=== PATIENT | male | born 1960 | race Caucasian/White ===

== ENCOUNTER 2016-10-19 12:13 | Emergency (ER) | payer MEDICAID ==
[2016-10-19] MEDS ORDERED: TDAP ADULT 0.5 ML INJ (BOOSTRIX) IM ONE (12:22)
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
[2016-10-19 12:46] LABS: % IMMATURE GRANULYOCYTES 0.2 % (0.0-1.1); ABSOLUTE IMMATURE GRANULOCYTES 0.01 10^3/uL (0.00-0.10); ADD DIFF? NO; ADD MORPH? NO; ADD SCAN? NO; ATYPICAL LYMPHOCYTE FLAG 10 (0-99); FRAGMENT RBC FLAG 0 (0-99); HEMATOCRIT 37.1 % (40.0-51.0); HEMOGLOBIN 12.6 g/dL (13.7-17.5); LEFT SHIFT FLG 0 (0-99); LIPEMIA HEMOLYSIS FLAG 90 (0-99); MEAN CELL HEMOGLOBIN 32.6 pg (27.9-34.1); MEAN CELL VOLUME 95.9 fL (81.5-99.8); MEAN PLATELET VOLUME 8.8 fL (8.7-11.7); PLATELET CLUMPS FLAG 10 (0-99); PLATELET COUNT 205 10^3/uL (150-400); RED BLOOD CELL COUNT 3.87 10^6/uL (4.40-6.38); RED CELL DISTRIBUTION WIDTH 12.6 % (11.5-15.2)
[2016-10-19] MEDS ORDERED: IOPAMIDOL (ISOVUE-300) 100 ML BTL ONE (13:00)
[2016-10-19 13:03] LABS: ANION GAP 14 mEq/L (8-16); CALCIUM 9.3 mg/dL (8.5-10.4); CARBON DIOXIDE 25 mEq/l (22-31); CHLORIDE 98 mEq/L (97-110); CREATININE 0.7 mg/dL (0.7-1.3); GLOMERULAR FILTRATION RATE > 60; GLUCOSE 94 mg/dL (70-100); POTASSIUM 4.7 mEq/L (3.5-5.2); SODIUM 137 mEq/L (134-144)
[2016-10-19 14:32] VITALS: BP 106/69; PULSE 92; RESP 20; TEMP 98.2; O2SAT 97
== END 2016-10-19 14:32 | disposition home or self-care (01) ==
LOC: EDUNIT#
DX: S31.010A Laceration without foreign body of lower back and pelvis without penetration into retroperitoneum, initial encounter (principal); F17.200 Nicotine dependence, unspecified, uncomplicated; Z23 Encounter for immunization; X58.XXXA Exposure to other specified factors, initial encounter; Y93.89 Activity, other specified
CPT/HCPCS: 82947-QW; Q9967

== ENCOUNTER 2016-10-26 00:44 | Emergency (ER) | payer MEDICAID ==
--- NOTE | 2016-10-26 00:52 | EDPHY ---
H & P HPI/ROS: HPI CHIEF COMPLAINT: Alcohol Intoxication HISTORY OF PRESENT ILLNESS: This patient 56-year-old male homeless, alcohol, presents emergency room by EMS [facility] 15 however he is slurring his patient highly intoxicated alcohol. He reports he drank multiple beers this evening. He is homeless. Denies ingestion of anything else. Denies drugs. Did have a fall. He has an abrasion to the right occiput. Abrasion to right elbow. He tells me his tetanus shot is up-to-date. He is on an arc hold. Past Medical History: Homelessness, daily alcohol use Past Surgical History: Denies any surgical history Social History: Daily alcohol use, homeless Family History: Noncontributory ROS REVIEW OF SYSTEMS: A comprehensive 10 point review of systems is otherwise negative aside from elements mentioned in the history of present illness. Exam Constitutional Intoxicated, triage nursing summary reviewed, vital signs reviewed, Sleepy, smells of alcohol Eyes normal conjunctivae and sclera, horizontal beating nystagmus consistent acute alcohol intoxication, otherwise pupils equal and react to light HENT head/neck: Abrasion and hematoma right occiput, no midline neck pain,, moist mucus membranes, no epistaxis, neck supple/ no meningismus, no raccoon eyes. Respiratory clear to auscultation bilaterally, normal breath sounds, no respiratory distress, no wheezing. Cardiovascular rate normal, regular rhythm, no murmur, no edema, distal pulses normal. Gastrointestinal soft, non-tender, no rebound, no guarding, normal bowel sounds, no distension, no pulsatile mass. Genitourinary no CVA tenderness. Musculoskeletal no midline vertebral tenderness, full range of motion, no calf swelling, no tenderness of extremities, no meningismus, good pulses, neurovascularly intact. Skin abrasion right elbow, pink, warm, & dry, no rash, skin atraumatic. Neurologic sleepy, intoxicated with alcohol,, alert and oriented x 3, AAOx3, moves all 4 extremities equally, motor intact, sensory intact, CN II-XII intact , , normal vision, normal speech. Psychiatric normal mood/affect. Heme/Lymph/Immune no lymphadenopathy. Differential Diagnosis: Includes but is not limited to in a particular order acute alcohol intoxication, alcohol abuse, dehydration, electrolyte abnormality , nausea vomiting from acute alcohol intoxication Medical Decision Making: Plan for this patient breath alcohol, CT head without contrast for trauma given acute alcohol intoxication and fall. Re-evaluation: CT scan of the head w/o. The results of the study are Negative for anything acute. The study was read by Dr. Marino I viewed the images myself on the PACS system. 0119: Re-evaluation at this time patient is stable gait. CT head without contrast for trauma the setting of acute alcohol intoxication and abrasions of the head show no acute bleed. Patient is stable gait no ataxia. Patient need to be discharged to the arc Source: Patient, EMS - Medical/Surgical History Hx Asthma: No Hx Chronic Respiratory Disease: No Hx Diabetes: No Hx Cardiac Disease: No Hx Renal Disease: No Hx Cirrhosis: No Hx Alcoholism: Yes Hx HIV/AIDS: No Hx Splenectomy or Spleen Trauma: No Other PMH: unobtainable, ?PSYCH, ETOH - Social History Smoking Status: Current every day smoker Constitutional: Initial Vital Signs Temperature (C) 36.5 C 10/26/16 00:52 Heart Rate 84 10/26/16 00:52 Respiratory Rate 18 10/26/16 00:52 Blood Pressure 150/85 H 10/26/16 00:52 O2 Sat (%) 93 10/26/16 00:52 O2 Delivery Mode Room Air Allergies/Adverse Reactions: No Known Allergies Allergy (Unverified 11/14/15 20:11) Home Medications: Medication Instructions Recorded Metoprolol Tartrate [Lopressor 25 25 mg PO BID #60 tab 10/29/14 mg (*)] levOFLOXACIN 750 mg PO DAILY #5 tablet 10/29/14 Departure - Departure Disposition: Home, Routine, Self-Care Clinical Impression: Alcohol intoxication Qualifiers: Complication of substance-induced condition: uncomplicated Qualified Code(s): F10.120 - Alcohol abuse with intoxication, uncomplicated Condition: Good Instructions: Alcohol Intoxication (ED) Referrals: NONE *PRIMARY CARE P,. [Primary Care Provider] - As per Instructions
[2016-10-26 02:07] VITALS: BP 99/71; PULSE 72; RESP 16; TEMP 98.2; O2SAT 95
== END 2016-10-26 02:07 | disposition home or self-care (01) ==
LOC: EDUNIT#
DX: F10.120 Alcohol abuse with intoxication, uncomplicated (principal); F17.200 Nicotine dependence, unspecified, uncomplicated

== ENCOUNTER 2016-11-08 18:44 | Emergency (ER) | payer MEDICAID ==
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
[2016-11-08 18:56] VITALS: TEMP 99.9; O2SAT 94
[2016-11-08] MEDS ORDERED: CHLORDIAZEPOXIDE 25MG PREPK#6 BTL TAKEHOME ONE ×2 (22:20→22:24)
[2016-11-08 22:40] VITALS: BP 149/78; PULSE 82; RESP 16
== END 2016-11-08 22:40 | disposition home or self-care (01) ==
LOC: EDUNIT#
DX: F10.120 Alcohol abuse with intoxication, uncomplicated (principal); F17.200 Nicotine dependence, unspecified, uncomplicated

== ENCOUNTER 2017-03-22 04:05 | Emergency (ER) | payer MEDICAID ==
[~2017-03-22 04:05] MED LIST: PERMETHRIN 5% 60 GM CREAM TP SCH
--- NOTE | 2017-03-22 04:16 | EDPHY ---
H & P HPI/ROS: HPI The patient presents with body lice, requiring medical clearance for long-term. He is said that he has had them for the last several days and he is homeless. He denies any fevers, rash on his body.. REVIEW OF SYSTEMS Constitutional: No fever, no chills. Eyes: No discharge. ENT: No sore throat. Cardiovascular: No chest pain, no palpitations. Respiratory: No cough, no shortness of breath. Gastrointestinal: No abdominal pain, no vomiting. Genitourinary: No hematuria. Musculoskeletal: No back pain. Skin: No rashes. Neurological: No headache. PMHx: Possible psychiatric disease Soc Hx: Homeless, history of alcohol use PHYSICAL General Appearance: Alert, no distress Eyes: Pupils equal and round no pallor or injection ENT, Mouth: Mucous membranes moist Respiratory: There are no retractions, lungs are clear to auscultation Cardiovascular: Regular rate and rhythm Gastrointestinal: Abdomen is soft and non-tender, no masses, bowel sounds normal Neurological: A&O, moves all extremities Skin: Warm and dry, no rashes Musculoskeletal: Neck is supple non tender Extremities: symmetrical, full range of motion Psychiatric: Patient is oriented X 3, there is no agitation Source: Patient Exam Limitations: No limitations - Medical/Surgical History Hx Asthma: No Hx Chronic Respiratory Disease: No Hx Diabetes: No Hx Cardiac Disease: No Hx Renal Disease: No Hx Cirrhosis: No Hx Alcoholism: Yes Hx HIV/AIDS: No Hx Splenectomy or Spleen Trauma: No Other PMH: unobtainable, ?PSYCH, ETOH - Social History Smoking Status: Current every day smoker Constitutional: Initial Vital Signs Temperature (C) 36.6 C 03/22/17 04:05 Heart Rate 74 03/22/17 04:05 Respiratory Rate 165 H 03/22/17 04:05 Blood Pressure 141/66 H 03/22/17 04:05 O2 Sat (%) 91 L 03/22/17 04:05 O2 Delivery Mode Room Air Allergies/Adverse Reactions: No Known Allergies Allergy (Unverified 03/22/17 04:20) Home Medications: Medication Instructions Recorded Permethrin 5% [Elimite 5%] 60 gm TP ONCE #1 cream 03/22/17 Medical Decision Making Differential Diagnosis: This is a 56-year-old homeless male who presents for medical clearance for long-term with body lice witnessed by officers. When he arrived in the emergency department, he was taken directly to the decontamination showers were he was given a shower and bathe Wright until all body lice were gone. He is given a prescription for permethrin cream which she can use over the next several hours to fully treat any lice that may still be present. Departure - Departure Disposition: Law Enforcement/Court/Correction Clinical Impression: Medical clearance for incarceration, Body lice Condition: Good Instructions: Body Lice (ED) Referrals: [facility] [Outside] - As per Instructions Prescriptions: Permethrin 5% [Elimite 5%] 60 gm TP ONCE #1 cream
[2017-03-22 04:24] VITALS: BP 141/66; PULSE 74; RESP 165; TEMP 97.9; O2SAT 91
== END 2017-03-22 04:36 ==
DX: B85.1 Pediculosis due to Pediculus humanus corporis (principal); F17.200 Nicotine dependence, unspecified, uncomplicated

== ENCOUNTER 2017-04-19 12:43 | Emergency (ER) | payer MEDICAID ==
--- NOTE | 2017-04-19 13:05 | EDPHY ---
H & P Time Seen by Provider: 04/19/17 12:58 HPI/ROS: CHIEF COMPLAINT: Alcohol withdrawal HISTORY OF PRESENT ILLNESS: Chronic alcoholic who drinks beer who was sent from detox for alcohol withdrawal. He feels very shaky and is tachycardic. He does not have hallucinations or vomiting. Symptoms moderate. His last drink was at 6:00 p.m. last night. Shaking is not associated with vertigo or double vision. Not better worse with anything. Started earlier this morning. The patient denies any known withdrawal seizure or hospitalization for delirium tremens. REVIEW OF SYSTEMS: Eye: no change in vision ENT: no sore throat Cardiac: no chest pain or syncope Pulmonary: Not short of breath Abdomen: no vomiting, diarrhea, abdominal pain Musculoskeletal: No recent injury Skin: no rash Neuro: no headache Constitutional: no fever : no urinary symptoms A comprehensive 10 point review of systems is otherwise negative aside from elements mentioned in the history of present illness. PAST MEDICAL HISTORY: Alcoholism Social history: Last drink as above, nonsmoker General Appearance: Alert and conversant, cooperative. Eyes: No scleral icterus. ENT, Mouth: Normal mucous membranes. Respiratory: Normal respiratory effort, breath sounds equal, lungs are clear to auscultation. Cardiovascular: Regular rate and rhythm. Tachycardic. Gastrointestinal: Abdomen is soft and non tender. Neurological: Alert and oriented x3. Normally conversant. Face symmetric, normal movement and sensation in all extremities. Tremulous and tachycardic but not confused. Skin: Warm and dry, no rashes. Musculoskeletal: No peripheral edema and no joint swelling. Psychiatric: Not agitated. Not hallucinating. Emergency Department course/MDM: Ativan 2 mg IV and normal saline 1 L. Heart rate noted to be 124. He does not appear to be in delirium tremens. 1514: Sleeping quietly, easily awakened, no longer tremulous, stable for discharge back to detox. 1600: Ambulatory, not ataxic, stable for discharge. Smoking Status: Former smoker Constitutional: Initial Vital Signs Temperature (C) 37.0 C 04/19/17 12:46 Heart Rate 124 H 04/19/17 12:46 Respiratory Rate 16 04/19/17 12:46 Blood Pressure 145/97 H 04/19/17 12:46 O2 Sat (%) 96 04/19/17 12:46 O2 Delivery Mode Room Air Allergies/Adverse Reactions: No Known Allergies Allergy (Unverified 04/19/17 12:50) Home Medications: Medication Instructions Recorded Unobtainable 03/15/17 Permethrin 5% [Elimite 5%] 60 gm TP ONCE #1 cream 03/22/17 Medical Decision Making Differential Diagnosis: Differential for shaking considered including but not limited to hypoglycemia, alcohol withdrawal, seizure disorder, other metabolic. - Data Points Laboratory Results: Laboratory Results 04/19/17 13:10 04/19/17 13:10 04/19/17 04/19/17 13:10 13:10 WBC 3.79 10^3/uL L 10^3/uL (3.80-9.50) RBC 4.01 10^6/uL L 10^6/uL (4.40-6.38) Hgb 13.5 g/dL L g/dL (13.7-17.5) Hct 37.8 % L % (40.0-51.0) MCV 94.3 fL fL (81.5-99.8) MCH 33.7 pg pg (27.9-34.1) MCHC 35.7 g/dL g/dL (32.4-36.7) RDW 12.5 % % (11.5-15.2) Plt Count 93 10^3/uL L 10^3/uL (150-400) MPV 9.2 fL fL (8.7-11.7) Neut % (Auto) 73.9 % % (39.3-74.2) Lymph % (Auto) 15.3 % % (15.0-45.0) [place] % (Auto) 9.5 % % (4.5-13.0) Eos % (Auto) 0.3 % L % (0.6-7.6) Baso % (Auto) 0.5 % % (0.3-1.7) Nucleat RBC Rel Count 0.0 % % (0.0-0.2) Absolute Neuts (auto) 2.80 10^3/uL 10^3/uL (1.70-6.50) Absolute Lymphs (auto) 0.58 10^3/uL L 10^3/uL (1.00-3.00) Absolute Monos (auto) 0.36 10^3/uL 10^3/uL (0.30-0.80) Absolute Eos (auto) 0.01 10^3/uL L 10^3/uL (0.03-0.40) Absolute Basos (auto) 0.02 10^3/uL 10^3/uL (0.02-0.10) Absolute Nucleated RBC 0.00 10^3/uL 10^3/uL (0-0.01) Immature Gran % 0.5 % % (0.0-1.1) Immature Gran # 0.02 10^3/uL 10^3/uL (0.00-0.10) Sodium 137 mEq/L mEq/L (134-144) Potassium 4.0 mEq/L mEq/L (3.5-5.2) Chloride 100 mEq/L mEq/L (97-110) Carbon Dioxide 20 mEq/l L mEq/l (22-31) Anion Gap 17 mEq/L H mEq/L (8-16) BUN 10 mg/dL mg/dL (7-23) Creatinine 0.7 mg/dL mg/dL (0.7-1.3) Estimated GFR > 60 Glucose 111 mg/dL H mg/dL (70-100) Calcium 9.8 mg/dL mg/dL (8.5-10.4) Medications Given: Discontinued Medications Chlordiazepoxide (Librium 25 Mg Prepack#6) 1 btl TAKEHOME EDNOW ONE Stop: 04/19/17 15:16 Last Admin: 04/19/17 15:33 Dose: 1 btl Chlordiazepoxide HCl (Librium) 50 mg PO EDNOW ONE Stop: 04/19/17 15:25 Last Admin: 04/19/17 15:32 Dose: 50 mg Sodium Chloride (Ns) 1,000 mls @ 0 mls/hr IV EDNOW ONE; Wide Open PRN Reason: Protocol Stop: 04/19/17 13:02 Last Admin: 04/19/17 13:15 Dose: 1,000 mls Lorazepam (Ativan Injection) 2 mg IVP EDNOW ONE Stop: 04/19/17 13:02 Last Admin: 04/19/17 13:15 Dose: 2 mg Lorazepam (Ativan Injection) 1 mg IVP EDNOW ONE Stop: 04/19/17 13:58 Last Admin: 04/19/17 14:27 Dose: 1 mg Lorazepam (Ativan Injection) 1 mg IVP EDNOW ONE Stop: 04/19/17 15:30 Last Admin: 04/19/17 15:32 Dose: 1 mg Departure - Departure Disposition: Home, Routine, Self-Care Clinical Impression: Alcohol withdrawal Qualifiers: Complication of substance-induced condition: uncomplicated Qualified Code(s): F10.230 - Alcohol dependence with withdrawal, uncomplicated Condition: Good Instructions: Alcohol Withdrawal (ED) Referrals: [facility],. [Clinic] - As per Instructions
[2017-04-19] MEDS: NS 1,000 ML IV ONE (13:15)
[2017-04-19] MEDS: LORazepam 2 MG/ML INJ IVP ONE ×3 (13:15→15:32)
[2017-04-19 13:16] LABS: % IMMATURE GRANULYOCYTES 0.5 % (0.0-1.1); ABSOLUTE IMMATURE GRANULOCYTES 0.02 10^3/uL (0.00-0.10); ADD DIFF? NO; ADD MORPH? NO; ADD SCAN? NO; ATYPICAL LYMPHOCYTE FLAG 0 (0-99); FRAGMENT RBC FLAG 0 (0-99); HEMATOCRIT 37.8 % (40.0-51.0); HEMOGLOBIN 13.5 g/dL (13.7-17.5); LEFT SHIFT FLG 0 (0-99); LIPEMIA HEMOLYSIS FLAG 90 (0-99); MEAN CELL HEMOGLOBIN 33.7 pg (27.9-34.1); MEAN CELL HEMOGLOBIN CONCENTR. 35.7 g/dL (32.4-36.7); MEAN CELL VOLUME 94.3 fL (81.5-99.8); MEAN PLATELET VOLUME 9.2 fL (8.7-11.7); PLATELET CLUMPS FLAG 20 (0-99); PLATELET COUNT 93 10^3/uL (150-400); RED BLOOD CELL COUNT 4.01 10^6/uL (4.40-6.38); RED CELL DISTRIBUTION WIDTH 12.5 % (11.5-15.2)
[2017-04-19 13:30] LABS: ANION GAP 17 mEq/L (8-16); CALCIUM 9.8 mg/dL (8.5-10.4); CARBON DIOXIDE 20 mEq/l (22-31); CHLORIDE 100 mEq/L (97-110); CREATININE 0.7 mg/dL (0.7-1.3); GLOMERULAR FILTRATION RATE > 60; GLUCOSE 111 mg/dL (70-100); SODIUM 137 mEq/L (134-144)
[2017-04-19] MEDS ORDERED: LORazepam 2 MG/ML INJ ONE (15:27)
[2017-04-19] MEDS: chlordiazePOXIDE 25 MG CAP PO ONE (15:32)
[2017-04-19] MEDS: CHLORDIAZEPOXIDE 25MG PREPK#6 BTL TAKEHOME ONE (15:33)
[2017-04-19 15:41] VITALS: BP 149/103; PULSE 107; RESP 18; TEMP 99.1; O2SAT 94
== END 2017-04-19 16:16 | disposition home or self-care (01) ==
LOC: EDUNIT# 12:43
DX: F10.230 Alcohol dependence with withdrawal, uncomplicated (principal); E86.9 Volume depletion, unspecified; Z87.891 Personal history of nicotine dependence
CPT/HCPCS: 96374; J2060

== ENCOUNTER 2017-04-25 20:17 | Emergency (ER) | payer MEDICAID ==
--- NOTE | 2017-04-25 20:26 | EDPHY ---
H & P Smoking Status: Former smoker HPI/ROS: CHIEF COMPLAINT: Alcohol intoxication HISTORY OF PRESENT ILLNESS: Patient is a 56-year-old male who presents to the emergency department via EMS after being found intoxicated. Patient is without complaints. He states he drank alcohol this evening. He drinks regularly. He has no headache or chest pain. No shortness of breath. No abdominal pain. REVIEW OF SYSTEMS: My complete review of systems is negative except as mentioned in the HPI. ( Cathie Parker) Past Medical/Surgical History: Includes alcohol abuse Social history: Patient drinks regularly. He does not smoke (Cathie Parker S ) Physical Exam: GENERAL: No acute distress, alert. Intoxicated appearing. Wet clothing. HEENT: Eyes normal to inspection, no signs of dehydration. No visible trauma. NECK: Normal appearing, supple. RESPIRATORY: Clear to auscultation bilaterally, no rales, rhonchi or wheezing. CVS: Regular rate and rhythm, no rubs, murmurs, or gallops. ABDOMEN: Soft, nontender, nondistended. BACK: Normal to inspection, no CVA tenderness. SKIN: Normal color, no rash, cool, dry. No pallor. EXTREMITIES: No pedal edema, no calf tenderness, no Homans sign or cords, no joint swelling. NEURO/PSYCH: Alert, intoxicated appearing, moves all extremities purposefully. Normal motor sensory exam. (Cathie Parker S) Constitutional: Initial Vital Signs Temperature (C) 36.5 C 04/25/17 20:24 Heart Rate 66 04/25/17 20:24 Respiratory Rate 18 04/25/17 20:24 Blood Pressure 137/98 H 04/25/17 20:24 O2 Sat (%) 94 04/25/17 20:24 O2 Delivery Mode Room Air Allergies/Adverse Reactions: No Known Allergies Allergy (Unverified 04/19/17 12:50) Home Medications: Medication Instructions Recorded Unobtainable 03/15/17 Permethrin 5% [Elimite 5%] 60 gm TP ONCE #1 cream 03/22/17 Medical Decision Making ED Course/Re-evaluation: In the emergency department I met EMS on arrival. Per report, police are coming with an R cold. As stated in HPI the patient has no complaints. His wet clothing was removed. Warm blankets were placed. Patient was recheck while here. He was stable with no new complaints. 2100: Patient is signed out to Dr. Farah at change of shift. (Cathie Parker) I assumed care of this patient at 9:[address] Parker. At 10:45 p.m. he was able to walk to the bathroom with minimal assistance. I anticipate that he will be ready for discharge and transport to the [facility] in the near future. (Gaby Farah) Differential Diagnosis: My differential includes but is not limited to alcohol intoxication, drug abuse , closed-head injury, electrolyte abnormality, sugar abnormality, dehydration, hypothermia (Cathie Parker) Departure - Departure Disposition: Home, Routine, Self-Care Clinical Impression: Alcohol abuse Alcoholic intoxication Qualifiers: Complication of substance-induced condition: uncomplicated Qualified Code(s): F10.920 - Alcohol use, unspecified with intoxication, uncomplicated Condition: Good Instructions: Alcohol Intoxication (ED) Additional Instructions: Return with any concerns. Referrals: [facility],. [Clinic] - As per Instructions
[2017-04-26 00:25] VITALS: TEMP 97.5
[2017-04-26] MEDS ORDERED: CHLORDIAZEPOXIDE 25MG PREPK#6 BTL TAKEHOME ONE (02:56)
[2017-04-26 03:04] VITALS: BP 138/68; PULSE 82; RESP 16; O2SAT 96
== END 2017-04-26 03:01 | disposition home or self-care (01) ==
LOC: EDUNIT#
DX: F10.129 Alcohol abuse with intoxication, unspecified (principal); Z87.891 Personal history of nicotine dependence

== ENCOUNTER 2017-05-03 09:52 | Emergency (ER) | payer MEDICAID ==
--- NOTE | 2017-05-03 09:58 | EDPHY ---
HPI/HX/ROS/PE/MDM Narrative: CHIEF COMPLAINT: Intoxication HPI: The patient is a 56 y/o male arriving via EMS for evaluation of alcohol intoxication. This is his 8th visit in the last year for alcohol-related incidents. Bystanders found him sleeping outside and contacted 911. He has no complaints and admits to recent alcohol use. Denies any recent trauma. REVIEW OF SYSTEMS: Aside from elements discussed in the HPI, a comprehensive 10-point review of systems was reviewed and is negative. PMH: Alcohol abuse SOCIAL HISTORY: Homeless, alcohol abuse. PHYSICAL EXAM: General:Patient is alert, in no acute distress. Neck: Full range of motion. Respiratory:No respiratory distress. Cardiovascular: Normal cap refill. Skin: Normal color. No rash. Warm and dry. Extremities: Normal appearance. Full range of motion. Neuro: Oriented x3. Normal motor function. Normal sensory function. ED Course: This is a 56 y/o male with a history of alcoholism who presents with alcohol intoxication and no complaints. He is able to ambulate without assistance and is alert and oriented. No obvious signs of trauma. Patient will be discharged in stable condition to the [facility] for detox. General Allergies/Adverse Reactions: No Known Allergies Allergy (Unverified 04/19/17 12:50) Home Medications: Medication Instructions Recorded Unobtainable 03/15/17 Permethrin 5% [Elimite 5%] 60 gm TP ONCE #1 cream 03/22/17 Departure - Departure Instructions: Alcohol Intoxication (ED) Additional Instructions: Medically clear for detox. Referrals: [facility] Detox 24 Hours [Outside] - As per Instructions Report Scribed for: Vinod Gaytan Report Scribed by: Katelyn Wayne Date of Report: 05/03/17 Time of Report: 09:57 Physician Review and Approval Statement: Portions of this note were transcribed by an ED scribe. I personally performed the history, physical exam, and medical decision making; and confirm the accuracy of the information in the transcribed note.
[2017-05-03 10:02] VITALS: BP 144/100; PULSE 92; RESP 16; TEMP 98.1; O2SAT 91
--- NOTE | 2017-05-03 10:04 | EDPHY ---
H & P Time Seen by Provider: 05/03/17 09:57 HPI/ROS: CHIEF COMPLAINT: Alcohol intoxication HISTORY OF PRESENT ILLNESS: 56-year-old male presents to the emergency department with acute alcohol intoxication. The patient admits to drinking "a lot of alcohol" today. He was found outside of [employer]. He denies any trauma or fall. He denies chest pain or difficulty breathing. He denies any other substance abuse. He has no complaints currently. REVIEW OF SYSTEMS: Constitutional: No fever, no chills. Eyes: No double or blurry vision. ENT: No sore throat. Respiratory: No cough, no shortness of breath. Cardiac: No chest pain. Gastrointestinal: No abdominal pain, vomiting or diarrhea. Genitourinary: No dysuria. Musculoskeletal: No neck or back pain. Skin: No rashes. Neurological: No headache. Past Medical/Surgical History: Alcoholism Social History: Homeless Smoking Status: Former smoker Physical Exam: General Appearance: Alert, no distress. Smells strongly of alcohol. No visible signs of trauma to his head. Eyes: Pupils equal and round. Extraocular motions are all intact. ENT: Mouth: Mucous membranes moist. Respiratory: No wheezing, rhonchi, or rales, lungs are clear to auscultation. Cardiovascular: Regular rate and rhythm. Gastrointestinal: Abdomen is soft and nontender, no masses, no rebound or guarding, bowel sounds normal. Neurological: Alert and oriented x 3, cranial nerves II through XII grossly intact Skin: Warm and dry, no rashes. Musculoskeletal: Nontender to palpate along the cervical, thoracic or lumbar spine. Neck is supple. Extremities: Full range of motion and no peripheral edema. Psychiatric: Patient is oriented X 3, there is no agitation. Constitutional: Initial Vital Signs Temperature (C) 36.7 C 05/03/17 10:00 Heart Rate 92 05/03/17 10:00 Respiratory Rate 16 05/03/17 10:00 Blood Pressure 144/100 H 05/03/17 10:00 O2 Sat (%) 91 L 05/03/17 10:00 O2 Delivery Mode Room Air Allergies/Adverse Reactions: No Known Allergies Allergy (Unverified 04/19/17 12:50) Home Medications: Medication Instructions Recorded Unobtainable 03/15/17 Permethrin 5% [Elimite 5%] 60 gm TP ONCE #1 cream 03/22/17 Medical Decision Making ED Course/Re-evaluation: 56-year-old male presents to the emergency department with acute alcohol intoxication. The patient is on an [facility] hold. He has been medically cleared and will be [facility]. The patient is welcome at the [facility]. They asked that we send a prepack of Librium with the patient. He has been there multiple times in the past. He has had alcohol withdrawal seizures in the past. Differential Diagnosis: Altered mental status including but not limited to hypoglycemia, infectious process, electrolyte abnormality, head injury and intoxicants. Departure - Departure Disposition: Home, Routine, Self-Care Condition: Good Instructions: Alcohol Intoxication (ED) Additional Instructions: Medically clear for detox. Referrals: [facility] Detox 24 Hours [Outside] - As per Instructions
[2017-05-03] MEDS ORDERED: CHLORDIAZEPOXIDE 25MG PREPK#6 BTL TAKEHOME ONE (10:06)
== END 2017-05-03 10:14 | disposition home or self-care (01) ==
LOC: EDUNIT#
DX: F10.129 Alcohol abuse with intoxication, unspecified (principal); Z87.891 Personal history of nicotine dependence

== ENCOUNTER 2017-05-20 17:43 | Emergency (ER) | payer MEDICAID ==
[2017-05-20 18:04] VITALS: RESP 16; O2SAT 92
--- NOTE | 2017-05-20 18:30 | EDPHY ---
H & P Stated Complaint: ETOH, unable to walk Time Seen by Provider: 05/20/17 18:29 HPI/ROS: HPI: This is a 56-year-old male presents with Chief Complaint: Alcohol intoxication, unable to walk Location: body Quality: Alcohol intoxication Duration: Today Signs and Symptoms: No delusions, no psychosis, no suicidal ideation, no homicidal ideation, no paranoia Timing: Acute on chronic Severity: Moderate to severe Context: Patient has a history of alcoholism as well as alcohol withdrawal seizures presents to the emergency room via [facility] as he was found out the general public intoxicated with alcohol. Patient admits that he drink "a lot" today. He is unable to walk unassisted. He reports that he is open to go to the [facility] at discharge as he has been there several times before. He denies any chest pain, shortness of breath, nausea, vomiting, fever, chills, abdominal pain, blood in stool, hematemesis. Modifying Factors: None Comment: ROS: see HPI Constitutional: No fever, no chills, no weight loss Eyes: No blurred vision Respiratory: No shortness of breath, no cough Cardiovascular: No chest pain Gastrointestinal: No nausea, no vomiting, no diarrhea Genitourinary: No dysuria Extremities: No myalgias Neurologic: No weakness, no numbness Skin: No rashes Hematologic: No bruising, no bleeding MEDICAL/SURGICAL/SOCIAL HISTORY: Medical history: Alcohol abuse Surgical history: Denies Social history: Homeless. CONSTITUTIONAL: Smells heavily of alcohol, slurring words, untidy elderly white male, awake and alert, no obvious distress HEENT: Atraumatic and normocephalic, PERRL, EOMI. Tympanic membranes clear. Oropharynx clear, no exudate and moist pink mucosa. Airway patent. No lymphadenopathy. No meningismus. Cardiovascular: Normal S1/S2, regular rate, regular rhythm, without murmur rub or gallop. PULMONARY/CHEST: Symmetrical and nontender. Clear to auscultation bilaterally. Good air movement. No accessory muscle usage. ABDOMEN: Soft, nondistended, nontender, no rebound, no guarding, no peritoneal signs, no masses or organomegaly. No CVAT. EXTREMITIES: 2/2 pulses, strength 5/5, no deformities, no clubbing, no cyanosis or edema. NEUROLOGICAL: no focal neuro deficits. GCS 15. SKIN: Warm and dry, no erythema. no rash. Good capillary refill. Source: Patient, Police, RN/MD Exam Limitations: Intoxication - Personal History Current Tetanus/Diphtheria Vaccine: Unsure Current Tetanus Diphtheria and Acellular Pertussis (TDAP): Unsure - Medical/Surgical History Hx Asthma: No Hx Chronic Respiratory Disease: No Hx Diabetes: No Hx Cardiac Disease: No Hx Renal Disease: No Hx Cirrhosis: No Hx Alcoholism: Yes Hx HIV/AIDS: No Hx Splenectomy or Spleen Trauma: No Other PMH: ETOH ABUSE - Social History Smoking Status: Former smoker Constitutional: Initial Vital Signs Temperature (C) 36.5 C 05/20/17 17:43 Heart Rate 69 05/20/17 17:43 Respiratory Rate 16 05/20/17 17:43 Blood Pressure 122/80 H 05/20/17 17:43 O2 Sat (%) 92 05/20/17 17:43 O2 Delivery Mode Room Air Allergies/Adverse Reactions: No Known Allergies Allergy (Unverified 04/19/17 12:50) Home Medications: Medication Instructions Recorded Unobtainable 03/15/17 Permethrin 5% [Elimite 5%] 60 gm TP ONCE #1 cream 03/22/17 Medical Decision Making ED Course/Re-evaluation: Patient is calm and cooperative upon arrival. He immediately went to sleep on the hallway stretcher. Will continue to monitor. Breathalyzer upon arrival is 0.340 After 5 hr in the emergency room; patient is alert and oriented x4. He is walking back and forth to the bathroom without assistance. He agrees to be discharged to the [facility] with Librium prepack for further monitoring assistance. Patient reports that he has been to the [facility] several times. No signs of delirium/psychosis/withdrawal seizures. Differential Diagnosis: Differential diagnosis includes but is not limited to alcohol intoxication, alcohol delirium. Departure - Departure Disposition: Other Psych, Not [place] Clinical Impression: Alcohol intoxication Qualifiers: Complication of substance-induced condition: uncomplicated Qualified Code(s): F10.920 - Alcohol use, unspecified with intoxication, uncomplicated Condition: Good Instructions: Abuse of Alcohol (ED) Additional Instructions: Please abstain from drinking alcohol excessively. Follow-up with the [facility] and take Librium as directed. Referrals: [facility] Detox 24 Hours [Outside] - As per Instructions
[2017-05-20] MEDS ORDERED: CHLORDIAZEPOXIDE 25MG PREPK#6 BTL TAKEHOME ONE (19:47)
[2017-05-20 22:33] VITALS: BP 146/77; PULSE 74; TEMP 97.9
== END 2017-05-20 19:30 ==
LOC: EDUNIT#
DX: F10.920 Alcohol use, unspecified with intoxication, uncomplicated (principal); Z87.891 Personal history of nicotine dependence

== ENCOUNTER 2017-11-14 04:47 | Emergency (ER) | payer MEDICAID ==
--- NOTE | 2017-11-14 05:17 | EDPHY ---
H & P Stated Complaint: ETOH Time Seen by Provider: 11/14/17 05:15 HPI/ROS: CHIEF COMPLAINT: Alcohol intoxication HISTORY OF PRESENT ILLNESS: The patient is brought in by ambulance for alcohol intoxication. Apparently, he is homeless and was approached by a woman who took him into though her house and together they drink alcohol from about 11:00 p.m. Until 4:00 a.m.. The patient was already intoxicated prior to his arrival at her house. The woman became concerned for his well being when he was unable to walk and called 911. The patient is unable to provide any meaningful history at this time. REVIEW OF SYSTEMS: Constitutional: No fever, no chills. Eyes:No visual changes. ENT: No sore throat. Respiratory: No cough, no shortness of breath. Cardiac: No chest pain. Gastrointestinal: No abdominal pain, vomiting or diarrhea. Genitourinary: No hematuria. Musculoskeletal: No back pain. Skin: No rashes. Neurological: No headache. PAST MEDICAL HISTORY: None PAST SURGICAL HISTORY: None SOCIAL HISTORY: Homeless, history of alcohol abuse PHYSICAL EXAM: General Appearance: Alert, well hydrated, appropriate, and non-toxic appearing. Head: Atraumatic without scalp tenderness or obvious injury Eyes: Pupils equal, round, reactive to light, no injection. Ears: Clear bilaterally, no perforation, normal landmarks Nose: Atraumatic, no rhinorrhea, clear. Throat: mucus membranes moist. Neck: Supple, non-tender, no lymphadenopathy. Respiratory: No retractions, no distress, no wheezes, and no accessory muscle use. Lungs are clear to auscultation bilaterally. Cardiovascular: Regular rate and rhythm, no murmurs, rubs, or gallops. Gastrointestinal: Abdomen is soft, non-tender, non-distended Musculoskeletal: Normal active ROM of all extremities, atraumatic. Neurological: Alert, appropriate, and interactive. Moves all extremities equally. Skin: No rashes, good turgor, no nodules on palpation. MEDICAL DECISION MAKING: I serially examined this patient since the patient's arrival here in the emergency department. The patient continues to become more and more sober with each examination. I serially questioned the patient and the patient's story given initially has not changed. The patient still denies any trauma, any head injury, and any illicit drug use. At this point, the patient is walking the department freely and is clinically sober. We're discharging the patient to the [facility] in stable condition. Source: Police, EMS Exam Limitations: Intoxication - Personal History Current Tetanus/Diphtheria Vaccine: Unsure Current Tetanus Diphtheria and Acellular Pertussis (TDAP): Unsure - Medical/Surgical History Hx Asthma: No Hx Chronic Respiratory Disease: No Hx Diabetes: No Hx Cardiac Disease: No Hx Renal Disease: No Hx Cirrhosis: No Hx Alcoholism: No Hx HIV/AIDS: No Hx Splenectomy or Spleen Trauma: No Other PMH: unable to obtain - Social History Smoking Status: Unknown if ever smoked Constitutional: Initial Vital Signs Temperature (C) 36.6 C 11/14/17 04:48 Heart Rate 95 11/14/17 04:48 Respiratory Rate 16 11/14/17 04:48 Blood Pressure 146/95 H 11/14/17 04:48 O2 Sat (%) 95 11/14/17 04:48 O2 Delivery Mode Room Air O2 (L/minute) 2 Departure - Departure Disposition: Home, Routine, Self-Care Clinical Impression: Alcoholic intoxication, Altered mental status Condition: Good Instructions: Alcohol Intoxication (ED) Referrals: [facility] 24 Hours [Outside] - As per Instructions
[2017-11-14 10:41] VITALS: BP 110/80
[2017-11-15] MEDS ORDERED: CHLORDIAZEPOXIDE 25MG PREPK#6 BTL TAKEHOME ONE (00:38)
== END 2017-11-14 10:41 | disposition home or self-care (01) ==
LOC: MERGE 04:47 → EDBD 04:47
DX: F10.129 Alcohol abuse with intoxication, unspecified (principal); R41.82 Altered mental status, unspecified

== ENCOUNTER 2017-11-23 17:23 | Emergency (ER) | payer MEDICAID ==
--- NOTE | 2017-11-23 19:07 | EDPHY ---
H & P Time Seen by Provider: 11/23/17 17:41 HPI/ROS: CHIEF COMPLAINT: Alcohol intoxication HISTORY OF PRESENT ILLNESS: Patient brought in by EMS [place] being found [place] the park intoxicated and unable to ambulate. On my evaluation patient without complaints. Denies trauma, fever, nausea, vomiting. Denies any drugs. Admits to being an alcoholic. States he also has schizophrenia but is not on medications because he"likes listening to the voices". Contents of 10 point review of systems otherwise negative except for what is mentioned in HPI. General Appearance: Alert, no distress. Eyes: Pupils equal and round no icterus Respiratory: No respiratory distress Neurological: Awake, alert, no focal deficits. Skin: Warm and dry, no rashes. Musculoskeletal: Neck is supple nontender. Extremities are symmetrical, full range of motion, no edema. Psychiatric: Patient is oriented X 3, there is no agitation. Appears intoxicated. Medical/surgical history: Schizophrenia, alcoholism. Social history: Denies drugs. Smoking Status: Unknown if ever smoked Constitutional: Initial Vital Signs Temperature (C) 37 C 11/23/17 17:37 Heart Rate 86 11/23/17 17:37 Respiratory Rate 16 11/23/17 17:37 Blood Pressure 142/92 H 11/23/17 17:37 O2 Sat (%) 95 11/23/17 17:37 O2 Delivery Mode Room Air Allergies/Adverse Reactions: No Known Allergies Allergy (Unverified 11/23/17 17:37) Home Medications: Medication Instructions Recorded chlordiazePOXIDE 25MG PREPK#6 1 btl TAKEHOME Q6 PRN #6 btl 11/23/17 [Librium 25 mg Prepack#6] Medical Decision Making ED Course/Re-evaluation: Patient sobering appropriately and is now ambulatory. Plan is to send to [facility]. Differential Diagnosis: Differential diagnosis includes but is not limited to alcohol intoxication, alcoholism, acute psychosis, drug abuse. After evaluation patient intoxicated with history of alcoholism and is on [facility] hold by [facility]. No evidence of trauma, illness or other emergency medical condition. Will send to [facility] via police escort. Departure - Departure Clinical Impression: Alcoholic intoxication Qualifiers: Complication of substance-induced condition: uncomplicated Qualified Code(s): F10.920 - Alcohol use, unspecified with intoxication, uncomplicated Alcohol dependence Qualifiers: Substance use status: with intoxication Condition: Fair Instructions: Alcohol Intoxication (ED) Additional Instructions: Patient to go to [facility]. No emergency medical condition identified. Referrals: NONE *PRIMARY CARE P,. [Primary Care Provider] - As per Instructions Prescriptions: chlordiazePOXIDE 25MG PREPK#6 [Librium 25 mg Prepack#6] 1 btl TAKEHOME Q6 PRN # 6 btl PRN Reason: Ciwa Score 6 - 11
[2017-11-23] MEDS ORDERED: CHLORDIAZEPOXIDE 25MG PREPK#6 BTL TAKEHOME ONE (20:01)
[2017-11-23 20:17] VITALS: BP 142/80
== END 2017-11-23 20:15 ==
LOC: EDUNIT# → MERGE 17:23
DX: F10.229 Alcohol dependence with intoxication, unspecified (principal)

== ENCOUNTER 2017-12-12 04:09 | Emergency (ER) | payer MEDICAID, OTHER ==
[2017-12-12] MEDS ORDERED: chlordiazePOXIDE 25 MG CAP PO ONE ×2 (04:20→06:02)
[2017-12-12] MEDS ORDERED: LORazepam 1 MG TAB PO ONE (04:20)
[2017-12-12] MEDS ORDERED: CHLORDIAZEPOXIDE 25MG PREPK#6 BTL TAKEHOME ONE (04:20)
--- NOTE | 2017-12-12 04:25 | EDPHY ---
H & P Stated Complaint: Sent from the [facility] Time Seen by Provider: 12/12/17 04:16 HPI/ROS: HPI The patient presents with symptoms of alcohol withdrawal, [facility] where he self presented earlier today. He says his last drink was yesterday and he drinks about 10 beers daily. He does have a history of alcohol withdrawal. He is feeling shaky and anxious currently. His symptoms started gradually and have gotten progressively worse. REVIEW OF SYSTEMS Constitutional: No fever, no chills. Eyes: No discharge. ENT: No sore throat. Cardiovascular: No chest pain, no palpitations. Respiratory: No cough, no shortness of breath. Gastrointestinal: No abdominal pain, no vomiting. Genitourinary: No hematuria. Musculoskeletal: No back pain. Skin: No rashes. Neurological: No headache. PMHx: History of spinal fusion Soc Hx: Longstanding history of alcohol abuse PHYSICAL General Appearance: Alert, no distress Eyes: Pupils equal and round no pallor or injection ENT, Mouth: Mucous membranes moist Respiratory: There are no retractions, lungs are clear to auscultation Cardiovascular: Regular rate and rhythm Gastrointestinal: Abdomen is soft and non-tender, no masses, bowel sounds normal Neurological: A&O, moves all extremities, hand tremor is present Skin: Warm and dry, no rashes Musculoskeletal: Neck is supple non tender Extremities: symmetrical, full range of motion Psychiatric: Patient is oriented X 3, there is no agitation Source: Patient Exam Limitations: No limitations - Personal History Current Tetanus/Diphtheria Vaccine: No Current Tetanus Diphtheria and Acellular Pertussis (TDAP): No - Medical/Surgical History Hx Asthma: No Hx Chronic Respiratory Disease: No Hx Diabetes: No Hx Cardiac Disease: No Hx Renal Disease: No Hx Cirrhosis: No Hx Alcoholism: No Hx HIV/AIDS: No Hx Splenectomy or Spleen Trauma: No Other PMH: C 5-6 fusion - Social History Smoking Status: Former smoker Constitutional: Initial Vital Signs Temperature (C) 36.7 C 12/12/17 04:11 Heart Rate 85 12/12/17 04:11 Respiratory Rate 16 12/12/17 04:11 Blood Pressure 168/108 H 12/12/17 04:11 O2 Sat (%) 99 12/12/17 04:11 O2 Delivery Mode Room Air Allergies/Adverse Reactions: No Known Allergies Allergy (Unverified 04/19/17 12:50) Home Medications: Medication Instructions Recorded Unobtainable 03/15/17 Permethrin 5% [Elimite 5%] 60 gm TP ONCE #1 cream 03/22/17 chlordiazePOXIDE 25MG PREPK#6 1 btl TAKEHOME Q6 PRN #6 btl 11/23/17 [Librium 25 mg Prepack#6] Medical Decision Making Differential Diagnosis: This is a 57-year-old man with longstanding history of alcohol abuse who presents from the [facility] with symptoms of alcohol withdrawal. He stopped drinking yesterday, drinking 10 beers a day. Here, he is not tachycardic though does have a hand tremor. I will treat him with Ativan and Librium and reassess him. The patient was observed for about 2 hr. His symptoms improved after receiving medication. He will return back to the [facility] for further care of his alcohol withdrawal. - Data Points Medications Given: Discontinued Medications Chlordiazepoxide (Librium 25 Mg Prepack#6) 1 btl TAKEHOME EDNOW ONE Stop: 12/12/17 04:21 Last Admin: 12/12/17 04:24 Dose: 1 btl Chlordiazepoxide HCl (Librium) 25 mg PO EDNOW ONE Stop: 12/12/17 04:21 Last Admin: 12/12/17 04:23 Dose: 25 mg Chlordiazepoxide HCl (Librium) 25 mg PO EDNOW ONE Stop: 12/12/17 06:03 Last Admin: 12/12/17 06:03 Dose: 25 mg Lorazepam (Ativan) 1 mg PO EDNOW ONE Stop: 12/12/17 04:21 Last Admin: 12/12/17 04:23 Dose: 1 mg Departure - Departure Disposition: Home, Routine, Self-Care Clinical Impression: Alcohol withdrawal Qualifiers: Complication of substance-induced condition: uncomplicated Qualified Code(s): F10.230 - Alcohol dependence with withdrawal, uncomplicated Condition: Good Instructions: Chlordiazepoxide/Clidinium (By mouth), Alcohol Withdrawal (ED) Additional Instructions: Please return to the emergency department if your worse in any way. Referrals: [facility]ox 24 Hours [Outside] - As per Instructions
[2017-12-12] MEDS ORDERED: chlordiazePOXIDE 25 MG CAP ONE (06:02)
[2017-12-12 06:09] VITALS: BP 152/97
== END 2017-12-12 06:09 | disposition home or self-care (01) ==
DX: F10.230 Alcohol dependence with withdrawal, uncomplicated (principal); Z87.891 Personal history of nicotine dependence

== ENCOUNTER 2018-04-06 20:28 | Emergency (ER) | payer OTHER, MEDICAID ==
[2018-04-06] MEDS ORDERED: NS 1,000 ML IV ONE (20:30)
--- NOTE | 2018-04-06 20:31 | EDPHY ---
H & P Source: Patient, EMS - Medical/Surgical History Hx Asthma: No Hx Chronic Respiratory Disease: No Hx Diabetes: No Hx Cardiac Disease: No Hx Renal Disease: No Hx Cirrhosis: No Hx Alcoholism: No Hx HIV/AIDS: No Hx Splenectomy or Spleen Trauma: No Other PMH: C 5-6 fusion - Social History Smoking Status: Former smoker Time Seen by Provider: 04/06/18 21:21 HPI/ROS: HPI CHIEF COMPLAINT: Alcohol Intoxication HISTORY OF PRESENT ILLNESS: 57-year-old male presents emergency room by EMS after was found on the sidewalk sleeping in front of the homeless long-term highly intoxicated with alcohol. EMS made contact with him he was unable to ambulate appropriately. So brought here to the emergency room. Upon arrival to the emergency room highly intoxicated with alcohol. Past Medical History: Homeless. Alcoholism. Daily alcohol use. Past Surgical History: No recent surgery Social History: Daily alcohol use. Family History: Noncontributory ROS REVIEW OF SYSTEMS: 10 Systems were reviewed and negative with the exception of the elements mentioned in the history of present illness. Exam Constitutional Intoxicated, triage nursing summary reviewed, vital signs reviewed, Sleepy, smells of alcohol Eyes normal conjunctivae and sclera, horizontal beating nystagmus consistent acute alcohol intoxication, otherwise pupils equal and react to light HENT normal inspection, atraumatic, moist mucus membranes, no epistaxis, neck supple/ no meningismus, no raccoon eyes. Respiratory clear to auscultation bilaterally, normal breath sounds, no respiratory distress, no wheezing. Cardiovascular rate normal, regular rhythm, no murmur, no edema, distal pulses normal. Gastrointestinal soft, non-tender, no rebound, no guarding, normal bowel sounds, no distension, no pulsatile mass. Genitourinary no CVA tenderness. Musculoskeletal no midline vertebral tenderness, full range of motion, no calf swelling, no tenderness of extremities, no meningismus, good pulses, neurovascularly intact. Skin pink, warm, & dry, no rash, skin atraumatic. Neurologic sleepy, intoxicated with alcohol,, alert and oriented x 3, AAOx3, moves all 4 extremities equally, motor intact, sensory intact, CN II-XII intact , , normal vision, normal speech. Psychiatric normal mood/affect. Heme/Lymph/Immune no lymphadenopathy. Differential Diagnosis: Includes but is not limited to in a particular order acute alcohol intoxication, alcohol abuse, dehydration, electrolyte abnormality , nausea vomiting from acute alcohol intoxication Medical Decision Making: Plan for this patient check chemistry values, electrolytes, serum alcohol level. Monitor for worsening condition monitor for sobriety. Re-evaluation: Signed over to Dr. Gaytan at 9:00 p.m. Shift change. Serum alcohol level 540. Will need to metabolize his alcohol. Once more sober can be safely discharged to the [facility]. (Chente Sheikh) Constitutional: Initial Vital Signs Temperature (C) 35 C L 04/06/18 20:32 Heart Rate 93 04/06/18 20:32 Respiratory Rate 16 04/06/18 20:32 Blood Pressure 131/93 H 04/06/18 20:32 O2 Sat (%) 92 04/06/18 20:32 O2 Delivery Mode Room Air O2 (L/minute) 2 Allergies/Adverse Reactions: No Known Allergies Allergy (Verified 01/18/18 15:42) Home Medications: Medication Instructions Recorded NK [No Known Home Meds] 01/18/18 Medical Decision Making Other Provider: [id number]: Patient is up and walking throughout the department without issue. He is medically clear for detox. (Vinod Gaytan) - Data Points Laboratory Results: Laboratory Results 04/06/18 20:40 04/06/18 20:40 Sodium 139 mEq/L mEq/L (135-145) Potassium 4.5 mEq/L mEq/L (3.3-5.0) Chloride 100 mEq/L mEq/L (97-110) Carbon Dioxide 26 mEq/l mEq/l (22-31) Anion Gap 13 mEq/L mEq/L (6-14) BUN 8 mg/dL mg/dL (7-23) Creatinine 0.7 mg/dL mg/dL (0.7-1.3) Estimated GFR > 60 Glucose 92 mg/dL mg/dL (70-100) Calcium 9.0 mg/dL mg/dL (8.5-10.4) Ethyl Alcohol 540 mg/dL H* mg/dL (0-10) Medications Given: Discontinued Medications Chlordiazepoxide (Librium 25 Mg Prepack#6) 1 btl TAKEHOME EDNOW ONE Stop: 04/06/18 22:16 Last Admin: 04/06/18 22:18 Dose: 1 btl Sodium Chloride (Ns) 1,000 mls @ 0 mls/hr IV ONCE ONE PRN Reason: Wide Open Stop: 04/06/18 20:31 Last Admin: 04/06/18 20:47 Dose: 1,000 mls Departure - Departure Disposition: Home, Routine, Self-Care Clinical Impression: Alcohol intoxication Qualifiers: Complication of substance-induced condition: uncomplicated Qualified Code(s): F10.920 - Alcohol use, unspecified with intoxication, uncomplicated Condition: Good Instructions: Chlordiazepoxide/Clidinium (By mouth), Alcohol Intoxication (ED) , Abuse of Alcohol (ED) Additional Instructions: Go directly to the [facility] for detox. Referrals: [facility] Detox 24 Hours [Outside] - As per Instructions
[2018-04-06] MEDS ORDERED: CHLORDIAZEPOXIDE 25MG PREPK#6 BTL TAKEHOME ONE (22:15)
[2018-04-06 23:45] VITALS: BP 137/79
== END 2018-04-06 23:44 | disposition home or self-care (01) ==
LOC: EDUNIT#
DX: F10.920 Alcohol use, unspecified with intoxication, uncomplicated (principal); Z87.891 Personal history of nicotine dependence; Z59.0 Homelessness
CPT/HCPCS: G0480

== ENCOUNTER 2018-04-27 00:38 | Emergency (ER) | payer MEDICAID, OTHER ==
--- NOTE | 2018-04-27 00:41 | EDPHY ---
H & P Time Seen by Provider: 04/27/18 00:41 HPI/ROS: HPI CHIEF COMPLAINT: Alcohol intoxication. Found down on the sidewalk. Facial trauma. HISTORY OF PRESENT ILLNESS: 57-year-old male, alcohol, homeless, presents emergency room after was found on the sidewalk. Arrives to the emergency room highly intoxicated with alcohol. Patient's rectal temp upon arrival 32.5. Cold to palpation. Patient denies any complaints however is highly intoxicated with alcohol. He does have dry blood from both nares. He is unsure if he recently fell. Past Medical History: Alcoholism daily alcohol use. Past Surgical History: C5-C6 fusion. Social History: Alcohol use. Homeless. Family History: Noncontributory ROS REVIEW OF SYSTEMS: Limited due to acute alcohol intoxication Exam Constitutional intoxicated, smells of alcohol triage nursing summary reviewed, vital signs reviewed, awake/alert. Vital signs noted he is hypothermic 32.5 rectally. Eyes normal conjunctivae and sclera, EOMI, PERRLA. HENT bilateral Nare: Dry blood both nares. Otherwise midface stable, otherwise head and neck atraumatic, normal inspection, atraumatic, moist mucus membranes, no epistaxis, neck supple/ no meningismus, no raccoon eyes. Respiratory clear to auscultation bilaterally, normal breath sounds, no respiratory distress, no wheezing. Cardiovascular rate normal, regular rhythm, no murmur, no edema, distal pulses normal. Gastrointestinal soft, non-tender, no rebound, no guarding, normal bowel sounds, no distension, no pulsatile mass. Genitourinary no CVA tenderness. Musculoskeletal no midline vertebral tenderness, full range of motion, no calf swelling, no tenderness of extremities, no meningismus, good pulses, neurovascularly intact. Skin cool to touch, pink, warm, & dry, no rash, skin atraumatic. Neurologic awake, alert and oriented x 3, AAOx3, moves all 4 extremities equally, motor intact, sensory intact, CN II-XII intact, normal cerebellar, normal vision, normal speech. Psychiatric normal mood/affect. Heme/Lymph/Immune no lymphadenopathy. Differential Diagnosis: Includes but is not limited to in a particular order acute alcohol intoxication, hypothermia, dehydration, electrolyte disturbance, intracranial bleed, facial trauma Medical Decision Making: Plan for this patient IV establishment, warm IV fluids , check basic electrolytes, serum alcohol level, Nora Hugger, warm blankets, monitor temperature closely. Additionally CT scan head without contrast for trauma. Re-evaluation: Serum alcohol level 245 at 1:43 a.m.. Blood glucose noted to be normal. CT scan head without contrast negative for acute traumatic injury called to me by Dr. Pineda. [id number]: Patient re-evaluated this time. He is up ambulatory. Answers questions appropriately. His temperature has been aggressively warmed here in the emergency room. He came in hypothermic however with warm blankets, warm fluids and a Nora Hugger he is now normothermic. Patient denies any specific complaints. He did have a CT scan head without contrast due to a bloody nose and alcohol intoxication with shows no evidence of acute traumatic injury. Patient ambulatory to the bathroom. He is clinically sober. Safe for discharge. Patient be Friday take-home pack of Librium. Patient can be safely discharged to the [facility]. Source: Patient, EMS - Medical/Surgical History Hx Asthma: No Hx Chronic Respiratory Disease: No Hx Diabetes: No Hx Cardiac Disease: No Hx Renal Disease: No Hx Cirrhosis: No Hx Alcoholism: No Hx HIV/AIDS: No Hx Splenectomy or Spleen Trauma: No Other PMH: C 5-6 fusion - Social History Smoking Status: Former smoker Constitutional: Initial Vital Signs Temperature (C) 32.4 C L 04/27/18 00:40 Heart Rate 94 04/27/18 00:40 Respiratory Rate 16 04/27/18 00:40 Blood Pressure 140/79 H 04/27/18 00:40 O2 Sat (%) 96 04/27/18 00:40 O2 Delivery Mode Nasal Cannula O2 (L/minute) 2 Allergies/Adverse Reactions: No Known Allergies Allergy (Verified 04/27/18 00:40) Home Medications: Medication Instructions Recorded NK [No Known Home Meds] 01/18/18 Medical Decision Making - Data Points Laboratory Results: Laboratory Results 04/27/18 01:05 04/27/18 01:05 04/27/18 04/27/18 01:05 01:05 WBC 9.58 10^3/uL H 10^3/uL (3.80-9.50) RBC 4.42 10^6/uL 10^6/uL (4.40-6.38) Hgb 14.5 g/dL g/dL (13.7-17.5) Hct 42.2 % % (40.0-51.0) MCV 95.5 fL fL (81.5-99.8) MCH 32.8 pg pg (27.9-34.1) MCHC 34.4 g/dL g/dL (32.4-36.7) RDW 12.6 % % (11.5-15.2) Plt Count 235 10^3/uL 10^3/uL (150-400) MPV 8.8 fL fL (8.7-11.7) Neut % (Auto) 85.5 % H % (39.3-74.2) Lymph % (Auto) 7.0 % L % (15.0-45.0) [place] % (Auto) 5.8 % % (4.5-13.0) Eos % (Auto) 0.1 % L % (0.6-7.6) Baso % (Auto) 0.5 % % (0.3-1.7) Nucleat RBC Rel Count 0.0 % % (0.0-0.2) Absolute Neuts (auto) 8.18 10^3/uL H 10^3/uL (1.70-6.50) Absolute Lymphs (auto) 0.67 10^3/uL L 10^3/uL (1.00-3.00) Absolute Monos (auto) 0.56 10^3/uL 10^3/uL (0.30-0.80) Absolute Eos (auto) 0.01 10^3/uL L 10^3/uL (0.03-0.40) Absolute Basos (auto) 0.05 10^3/uL 10^3/uL (0.02-0.10) Absolute Nucleated RBC 0.00 10^3/uL 10^3/uL (0-0.01) Immature Gran % 1.1 % % (0.0-1.1) Immature Gran # 0.11 10^3/uL H 10^3/uL (0.00-0.10) Sodium 140 mEq/L mEq/L (135-145) Potassium 3.9 mEq/L mEq/L (3.3-5.0) Chloride 98 mEq/L mEq/L (97-110) Carbon Dioxide 19 mEq/l L mEq/l (22-31) Anion Gap 23 mEq/L H mEq/L (6-14) BUN 12 mg/dL mg/dL (7-23) Creatinine 0.6 mg/dL L mg/dL (0.7-1.3) Estimated GFR > 60 Glucose 98 mg/dL mg/dL (70-100) Calcium 9.4 mg/dL mg/dL (8.5-10.4) Ethyl Alcohol 245 mg/dL H mg/dL (0-10) Medications Given: Discontinued Medications Chlordiazepoxide (Librium 25 Mg Prepack#6) 1 btl TAKEHOME EDNOW ONE Stop: 04/27/18 05:21 Last Admin: 04/27/18 05:21 Dose: 1 btl Sodium Chloride (Ns) 1,000 mls @ 0 mls/hr IV EDNOW ONE; Wide Open PRN Reason: Protocol Stop: 04/27/18 00:44 Last Admin: 04/27/18 01:30 Dose: 1,000 mls Departure - Departure Disposition: Home, Routine, Self-Care Clinical Impression: Alcohol intoxication Qualifiers: Complication of substance-induced condition: uncomplicated Qualified Code(s): F10.920 - Alcohol use, unspecified with intoxication, uncomplicated Hypothermia Qualifiers: Encounter type: initial encounter Qualified Code(s): T68.XXXA - Hypothermia, initial encounter Condition: Good Instructions: Chlordiazepoxide (By mouth), Alcohol Intoxication (ED), Abuse of Alcohol (ED), Acute Hypothermia (ED) Referrals: NONE *PRIMARY CARE P,. [Primary Care Provider] - As per Instructions
[2018-04-27] MEDS ORDERED: NS 1,000 ML IV ONE (00:43)
[2018-04-27 01:20] LABS: PLATELET COUNT 235 10^3/uL (150-400)
[2018-04-27] MEDS ORDERED: CHLORDIAZEPOXIDE 25MG PREPK#6 BTL TAKEHOME ONE ×2 (05:18→05:20)
[2018-04-27 05:35] VITALS: BP 131/80
== END 2018-04-27 05:30 | disposition home or self-care (01) ==
LOC: EDUNIT#
DX: F10.920 Alcohol use, unspecified with intoxication, uncomplicated (principal); T68.XXXA Hypothermia, initial encounter; E86.9 Volume depletion, unspecified
CPT/HCPCS: G0480

== ENCOUNTER 2018-05-27 19:21 | Emergency (ER) | payer MEDICAID ==
--- NOTE | 2018-05-27 19:29 | EDPHY ---
H & P Stated Complaint: ETOH, drunk outside of homeless group home. BGL 96 Source: Patient, EMS - Personal History Current Tetanus Diphtheria and Acellular Pertussis (TDAP): Unsure - Medical/Surgical History Hx Asthma: No Hx Chronic Respiratory Disease: No Hx Diabetes: No Hx Cardiac Disease: No Hx Renal Disease: No Hx Cirrhosis: No Hx Alcoholism: No Hx HIV/AIDS: No Hx Splenectomy or Spleen Trauma: No Other PMH: C 5-6 fusion - Social History Smoking Status: Former smoker Time Seen by Provider: 05/27/18 19:28 HPI/ROS: HPI CHIEF COMPLAINT: Alcohol Intoxication HISTORY OF PRESENT ILLNESS: 57-year-old male, well known to myself as well as the emergency room, homeless, history of alcoholism daily alcohol use presents emergency room by EMS after was found in front of the group home intoxicated with alcohol. No trauma reported. He arrives to the emergency room highly intoxicated with alcohol. Stable vital signs. Blood glucose reported to be 96 prior to arrival. Past Medical History: Alcoholism daily alcohol use Past Surgical History: C5 through C6 fusion Social History: Homeless, daily alcohol use Family History: Noncontributory ROS REVIEW OF SYSTEMS: Somewhat limited due to acute alcohol intoxication Exam Constitutional Intoxicated, triage nursing summary reviewed, vital signs reviewed, Sleepy, smells of alcohol Eyes normal conjunctivae and sclera, horizontal beating nystagmus consistent acute alcohol intoxication, otherwise pupils equal and react to light HENT normal inspection, atraumatic, moist mucus membranes, no epistaxis, neck supple/ no meningismus, no raccoon eyes. Respiratory clear to auscultation bilaterally, normal breath sounds, no respiratory distress, no wheezing. Cardiovascular rate normal, regular rhythm, no murmur, no edema, distal pulses normal. Gastrointestinal soft, non-tender, no rebound, no guarding, normal bowel sounds, no distension, no pulsatile mass. Genitourinary no CVA tenderness. Musculoskeletal no midline vertebral tenderness, full range of motion, no calf swelling, no tenderness of extremities, no meningismus, good pulses, neurovascularly intact. Skin pink, warm, & dry, no rash, skin atraumatic. Neurologic sleepy, intoxicated with alcohol,, alert and oriented x 3, AAOx3, moves all 4 extremities equally, motor intact, sensory intact, CN II-XII intact , , normal vision, normal speech. Psychiatric normal mood/affect. Heme/Lymph/Immune no lymphadenopathy. Differential Diagnosis: Includes but is not limited to in a particular order acute alcohol intoxication, alcohol abuse, dehydration, electrolyte abnormality , nausea vomiting from acute alcohol intoxication Medical Decision Making: Plan for this patient IV establishment basic blood draw, electrolytes, CBC, alcohol level. Monitor for worsening condition monitor for sobriety. Re-evaluation: Serum alcohol [address] Munoz at 11pm shift-change. Pending Sobriety. (Chente Sheikh) 12:15 a.m.- Patient able to get out of bed and ambulate with steady gait. He is welcome at the [facility]. We will send him there with a Librium pill pack. (Minoo Munoz) Constitutional: Initial Vital Signs Temperature (C) 36.4 C 05/27/18 19:26 Heart Rate 75 05/27/18 19:26 Respiratory Rate 14 05/27/18 19:26 Blood Pressure 144/83 H 05/27/18 19:26 O2 Sat (%) 94 05/27/18 19:26 O2 Delivery Mode Room Air Allergies/Adverse Reactions: No Known Allergies Allergy (Verified 04/27/18 00:40) Home Medications: Medication Instructions Recorded NK [No Known Home Meds] 01/18/18 - Data Points Laboratory Results: Laboratory Results 05/27/18 19:37 05/27/18 19:37 05/27/18 05/27/18 19:37 19:37 WBC 7.58 10^3/uL 10^3/uL (3.80-9.50) RBC 4.56 10^6/uL 10^6/uL (4.40-6.38) Hgb 14.5 g/dL g/dL (13.7-17.5) Hct 44.0 % % (40.0-51.0) MCV 96.5 fL fL (81.5-99.8) MCH 31.8 pg pg (27.9-34.1) MCHC 33.0 g/dL g/dL (32.4-36.7) RDW 12.5 % % (11.5-15.2) Plt Count 173 10^3/uL 10^3/uL (150-400) MPV 9.1 fL fL (8.7-11.7) Neut % (Auto) 55.8 % % (39.3-74.2) Lymph % (Auto) 33.6 % % (15.0-45.0) [place] % (Auto) 5.7 % % (4.5-13.0) Eos % (Auto) 4.1 % % (0.6-7.6) Baso % (Auto) 0.4 % % (0.3-1.7) Nucleat RBC Rel Count 0.0 % % (0.0-0.2) Absolute Neuts (auto) 4.23 10^3/uL 10^3/uL (1.70-6.50) Absolute Lymphs (auto) 2.55 10^3/uL 10^3/uL (1.00-3.00) Absolute Monos (auto) 0.43 10^3/uL 10^3/uL (0.30-0.80) Absolute Eos (auto) 0.31 10^3/uL 10^3/uL (0.03-0.40) Absolute Basos (auto) 0.03 10^3/uL 10^3/uL (0.02-0.10) Absolute Nucleated RBC 0.00 10^3/uL 10^3/uL (0-0.01) Immature Gran % 0.4 % % (0.0-1.1) Immature Gran # 0.03 10^3/uL 10^3/uL (0.00-0.10) Sodium 141 mEq/L mEq/L (135-145) Potassium 4.3 mEq/L mEq/L (3.5-5.2) Chloride 104 mEq/L mEq/L (97-110) Carbon Dioxide 25 mEq/l mEq/l (22-31) Anion Gap 12 mEq/L mEq/L (6-14) BUN 5 mg/dL L mg/dL (7-23) Creatinine 0.5 mg/dL L mg/dL (0.7-1.3) Estimated GFR > 60 Glucose 93 mg/dL mg/dL (70-100) Calcium 9.2 mg/dL mg/dL (8.5-10.4) Ethyl Alcohol 487 mg/dL H* mg/dL (0-10) Departure - Departure Disposition: Home, Routine, Self-Care Clinical Impression: Alcohol intoxication Qualifiers: Complication of substance-induced condition: with delirium Qualified Code(s): F10.921 - Alcohol use, unspecified with intoxication delirium Condition: Good Instructions: Alcohol Intoxication (ED), Abuse of Alcohol (ED) Referrals: [facility],. [Clinic] - As per Instructions
[2018-05-27 19:51] LABS: PLATELET COUNT 173 10^3/uL (150-400)
[2018-05-28] MEDS: CHLORDIAZEPOXIDE 25MG PREPK#6 BTL TAKEHOME ONE (00:20)
[2018-05-28 00:26] VITALS: BP 112/71
== END 2018-05-28 00:41 | disposition home or self-care (01) ==
LOC: EDUNIT#
DX: F10.921 Alcohol use, unspecified with intoxication delirium (principal); Y90.8 Blood alcohol level of 240 mg/100 ml or more; Z87.891 Personal history of nicotine dependence; Z59.0 Homelessness; Z98.1 Arthrodesis status
CPT/HCPCS: G0480

== ENCOUNTER 2018-07-11 21:58 | Emergency (ER) | payer MEDICAID, OTHER ==
--- NOTE | 2018-07-11 22:11 | EDPHY ---
H & P Stated Complaint: too [facility] Time Seen by Provider: 07/11/18 22:11 HPI/ROS: HPI CHIEF COMPLAINT: Alcohol Intoxication HISTORY OF PRESENT ILLNESS: This is a 57-year-old male well known to the emergency room he is homeless alcoholic, presents emergency room for acute alcohol intoxication. Patient was too intoxicated to ambulate safely to be at the [facility]. He arrives to the emergency room highly intoxicated is placed in hallway 2. He has no complaints. No reported trauma. Past Medical History: Significant medical history for alcohol liver disease, chronic alcohol use, kidney acquired pneumonia Past Surgical History: No recent surgery Social History: Alcoholism daily alcohol use. Homeless. Family History: Noncontributory ROS REVIEW OF SYSTEMS: 10 Systems were reviewed and negative with the exception of the elements mentioned in the history of present illness. Exam Constitutional Intoxicated, triage nursing summary reviewed, vital signs reviewed, Sleepy, smells of alcohol Eyes normal conjunctivae and sclera, horizontal beating nystagmus consistent acute alcohol intoxication, otherwise pupils equal and react to light HENT normal inspection, atraumatic, moist mucus membranes, no epistaxis, neck supple/ no meningismus, no raccoon eyes. Respiratory clear to auscultation bilaterally, normal breath sounds, no respiratory distress, no wheezing. Cardiovascular rate normal, regular rhythm, no murmur, no edema, distal pulses normal. Gastrointestinal soft, non-tender, no rebound, no guarding, normal bowel sounds, no distension, no pulsatile mass. Genitourinary no CVA tenderness. Musculoskeletal no midline vertebral tenderness, full range of motion, no calf swelling, no tenderness of extremities, no meningismus, good pulses, neurovascularly intact. Skin pink, warm, & dry, no rash, skin atraumatic. Neurologic sleepy, intoxicated with alcohol,, alert and oriented x 3, AAOx3, moves all 4 extremities equally, motor intact, sensory intact, CN II-XII intact , , normal vision, normal speech. Psychiatric normal mood/affect. Heme/Lymph/Immune no lymphadenopathy. Differential Diagnosis: Includes but is not limited to in a particular order acute alcohol intoxication, alcohol abuse, dehydration, electrolyte abnormality , nausea vomiting from acute alcohol intoxication Medical Decision Making: Plan for this patient monitor for worsening condition , monitor for sobriety. Breath alcohol level, point care glucose. Once patient is more sober and can ambulate safely can be disposition to the [facility]. Re-evaluation: Breath alcohol 246 Blood sugar normal at 99. 0157: This patient ambulated well throughout the emergency without any difficulty. Clinically sober stable gait and safe for discharge to the [facility] Source: Patient - Personal History Current Tetanus/Diphtheria Vaccine: Yes Current Tetanus Diphtheria and Acellular Pertussis (TDAP): Yes - Medical/Surgical History Hx Asthma: No Hx Chronic Respiratory Disease: No Hx Diabetes: No Hx Cardiac Disease: No Hx Renal Disease: No Hx Cirrhosis: No Hx Alcoholism: No Hx HIV/AIDS: No Hx Splenectomy or Spleen Trauma: No Other PMH: C 5-6 fusion, ETOH ABUSE - Social History Smoking Status: Former smoker Constitutional: Initial Vital Signs Temperature (C) 36.8 C 07/11/18 22:05 Heart Rate 82 07/11/18 22:05 Respiratory Rate 18 07/11/18 22:05 Blood Pressure 141/88 H 07/11/18 22:05 O2 Sat (%) 94 07/11/18 22:05 O2 Delivery Mode Room Air Allergies/Adverse Reactions: No Known Allergies Allergy (Verified 07/11/18 22:10) Home Medications: Medication Instructions Recorded NK [No Known Home Meds] 01/18/18 Medical Decision Making - Data Points Laboratory Results: 07/11/18 22:41 POC Glucose 99 mg/dL mg/dL (70-100) Point of Care Test Results: Chemistry 07/11/18 22:41 POC Glucose 99 mg/dL mg/dL (70-100) Departure - Departure Disposition: Home, Routine, Self-Care Clinical Impression: Alcohol intoxication Qualifiers: Complication of substance-induced condition: uncomplicated Qualified Code(s): F10.920 - Alcohol use, unspecified with intoxication, uncomplicated Condition: Good Instructions: Alcohol Intoxication (ED), Abuse of Alcohol (ED) Referrals: NONE *PRIMARY CARE P,. [Primary Care Provider] - As per Instructions
[2018-07-12 02:30] VITALS: BP 118/88
== END 2018-07-12 02:28 | disposition home or self-care (01) ==
LOC: EDUNIT#
DX: F10.920 Alcohol use, unspecified with intoxication, uncomplicated (principal)